=== PATIENT | male | born 1960 | race Caucasian/White ===

== ENCOUNTER 2018-03-05 07:43 | Emergency (ER) | payer OTHER, BC ==
[2018-03-05 07:45] VITALS: BMI 34.4
[2018-03-05 07:51] VITALS: TEMP 98; O2SAT 98
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
[2018-03-05 09:40] VITALS: BP 117/54; PULSE 70; RESP 20
--- NOTE | 2018-03-05 11:46 | CARD ---
APPROVED REPORT EKG Measurement Heart [id number] <Conclusion> Normal sinus rhythm NSSTW changes
== END 2018-03-05 10:06 | disposition home or self-care (01) ==
LOC: ED 07:43
DX: S00.93XA Contusion of unspecified part of head, initial encounter (principal); V49.49XA Driver injured in collision with other motor vehicles in traffic accident, initial encounter; Y92.410 Unspecified street and highway as the place of occurrence of the external cause